=== PATIENT | female | born 1940 | race Caucasian/White ===

== ENCOUNTER 2019-03-27 14:10 | Outpatient (CLI) | payer OTHER | END 2019-03-27 21:06 | disposition home or self-care (01) | LOC: SMA 14:10 | PROVIDERS: ATTEND Obstetrics & Gynecology Gynecology | DX: Z12.31 Encounter for screening mammogram for malignant neoplasm of breast (principal) | CPT/HCPCS: 77067 ==

== ENCOUNTER 2019-04-11 09:14 | Outpatient (CLI) | payer OTHER | END 2019-04-11 20:58 | disposition home or self-care (01) | LOC: SMA 09:14 | PROVIDERS: ATTEND Obstetrics & Gynecology Gynecology | DX: R92.2 Inconclusive mammogram (principal) | CPT/HCPCS: 76641; 77065 ==